=== PATIENT | male | born 1950 | race Caucasian/White ===

== ENCOUNTER 2020-04-30 12:26 | Inpatient (IN) ==
[2020-04-30] MEDS ORDERED: Naloxone 0.4 MG/ML INJ IVP PRN (17:55)
[2020-04-30] MEDS ORDERED: *HR* Promethazine 25 MG/ML VIAL IVP PRN (17:58)
[2020-04-30] MEDS ORDERED: *HR* LORazepam 2 MG/ML VIAL IVP PRN (17:58)
[2020-04-30] MEDS: *HR* LORazepam 2 MG/ML VIAL IVP PRN ×2 (19:21→20:33)
[2020-04-30] MEDS: Thiamine (B-1) 100 MG, Folic Acid 1 MG, MVI, adult with vitamin K 10 ML in 0.9 % Sodi... IVPB SCH (19:22)
[2020-04-30] MEDS: Nicotine 21 MG PATCH.TD24 TD SCH (20:39)
[2020-05-01] MEDS: *HR* LORazepam 2 MG/ML VIAL IVP PRN ×2 (01:39→02:21)
[2020-05-01] MEDS ORDERED: *HR* LORazepam 2 MG/ML VIAL IVP ONE (03:01)
[2020-05-01] MEDS: Dexmedetomidine HCl 400 MCG/100 ML MLS IVC SCH (04:31)
[2020-05-01 05:11] LABS: Hematocrit 28.9 % (37.5-50.1); Hemoglobin 9.7 g/dL (12.9-16.9); Mean Corpuscular HGB Conc 33.6 g/dL (31.6-35.5); Mean Corpuscular Hemoglobin 33.8 pg (28.0-33.3); Mean Corpuscular Volume 100.7 fL (83.0-100.0); Mean Platelet Volume 9.2 fL (9.4-12.4); Platelet Count 225 K/mcL (140-400); Red Blood Count 2.87 M/mcL (4.19-5.50); Red Cell Distribution Width 12.5 % (11.5-14.5); White Blood Count 4.4 K/mcL (4.3-11.1)
[2020-05-01 05:38] LABS: % Iron Saturation 20 % (20-55); Alanine Aminotransferase 14 Units/L (7-52); Albumin/Globulin Ratio 1.2 (1.1-2.2); Alkaline Phosphatase 53 Units/L (34-104); Aspartate Amino Transferase 22 Units/L (13-39); BUN/Creatinine Ratio 14 (6-26); Bilirubin,Total 0.6 mg/dL (0.3-1.0); Blood Urea Nitrogen 14 mg/dL (8-23); Calcium 8.1 mg/dL (8.6-10.3); Carbon Dioxide 22 mEq/L (23-29); Chloride 95 mEq/L (98-107); Globulin 2.6 g/dL (2.4-3.5); Glucose 83 mg/dL (70-105); Iron 39 mcg/dL (65-175); Magnesium 1.4 mg/dL (1.6-2.6); Osmolality,Calculated 268 (280-300); Potassium 3.2 mEq/L (3.5-5.1); Sodium 129 mEq/L (136-145); Total Protein 5.6 g/dL (6.4-8.9); Transferrin 142 mg/dL (203-362); eGFR For African Americans > 60 (> 60); eGFR For Non-African Americans > 60 (> 60)
[2020-05-01 05:56] LABS: Ferritin > 1500 ng/mL (20-250)
[2020-05-01] MEDS ORDERED: levoFLOXacin 750 MG/150 ML 750 MG/150 ML BAG IVPB SCH (09:00)
[2020-05-01] MEDS ORDERED: 0.9 % Sodium Chloride 500 ML ONE (12:48)
[2020-05-01] MEDS: Aspirin Enteric Coated 81 MG Tablet PO SCH (12:55)
[2020-05-01] MEDS: Thiamine (B-1) 100 MG, Folic Acid 1 MG, MVI, adult with vitamin K 10 ML in 0.9 % Sodi... IVPB SCH (19:16)
[2020-05-01] MEDS: Nicotine 21 MG PATCH.TD24 TD SCH (20:41)
[2020-05-01] MEDS: Famotidine 20 MG TABLET PO SCH (20:41)
[2020-05-02 05:59] LABS: Hematocrit 33.2 % (37.5-50.1); Hemoglobin 10.9 g/dL (12.9-16.9); Mean Corpuscular HGB Conc 32.8 g/dL (31.6-35.5); Mean Corpuscular Hemoglobin 33.2 pg (28.0-33.3); Mean Corpuscular Volume 101.2 fL (83.0-100.0); Mean Platelet Volume 10.5 fL (9.4-12.4); Platelet Count 235 K/mcL (140-400); Red Blood Count 3.28 M/mcL (4.19-5.50); Red Cell Distribution Width 12.7 % (11.5-14.5)
[2020-05-02 06:01] LABS: White Blood Count 8.2 K/mcL (4.3-11.1)
[2020-05-02 06:20] LABS: BUN/Creatinine Ratio 14 (6-26); Blood Urea Nitrogen 15 mg/dL (8-23); Calcium 8.9 mg/dL (8.6-10.3); Carbon Dioxide 20 mEq/L (23-29); Chloride 95 mEq/L (98-107); Glucose 72 mg/dL (70-105); Magnesium 2.1 mg/dL (1.6-2.6); Osmolality,Calculated 263 (280-300); Phosphorous 3.1 mg/dL (2.7-4.5); Potassium 4.1 mEq/L (3.5-5.1); Sodium 127 mEq/L (136-145); eGFR For African Americans > 60 (> 60); eGFR For Non-African Americans > 60 (> 60)
[2020-05-02] MEDS: Dexmedetomidine HCl 400 MCG/100 ML MLS IVC SCH (08:38)
[2020-05-02] MEDS: Famotidine 20 MG TABLET PO SCH ×2 (10:03→21:10)
[2020-05-02] MEDS: levoFLOXacin 750 MG TABLET PO SCH (10:03)
[2020-05-02] MEDS: Aspirin Enteric Coated 81 MG Tablet PO SCH (10:04)
[2020-05-02] MEDS: D5% in 0.9% NACL 1,000 ML IVC SCH ×2 (12:59→21:11)
[2020-05-02] MEDS: Thiamine (B-1) 100 MG, Folic Acid 1 MG, MVI, adult with vitamin K 10 ML in 0.9 % Sodi... IVPB SCH (18:04)
[2020-05-02] MEDS: Nicotine 21 MG PATCH.TD24 TD SCH (21:12)
[2020-05-03 02:12] LABS: Hematocrit 28.7 % (37.5-50.1); Hemoglobin 9.8 g/dL (12.9-16.9); Mean Corpuscular HGB Conc 34.1 g/dL (31.6-35.5); Mean Corpuscular Hemoglobin 34.3 pg (28.0-33.3); Mean Corpuscular Volume 100.3 fL (83.0-100.0); Mean Platelet Volume 9.3 fL (9.4-12.4); Platelet Count 238 K/mcL (140-400); Red Blood Count 2.86 M/mcL (4.19-5.50); Red Cell Distribution Width 12.7 % (11.5-14.5); White Blood Count 12.3 K/mcL (4.3-11.1)
[2020-05-03 02:31] LABS: BUN/Creatinine Ratio 13 (6-26); Blood Urea Nitrogen 13 mg/dL (8-23); Calcium 8.2 mg/dL (8.6-10.3); Carbon Dioxide 25 mEq/L (23-29); Chloride 99 mEq/L (98-107); Glucose 147 mg/dL (70-105); Magnesium 1.6 mg/dL (1.6-2.6); Osmolality,Calculated 273 (280-300); Phosphorous 2.5 mg/dL (2.7-4.5); Potassium 3.6 mEq/L (3.5-5.1); Sodium 130 mEq/L (136-145); eGFR For African Americans > 60 (> 60); eGFR For Non-African Americans > 60 (> 60)
[2020-05-03] MEDS: D5% in 0.9% NACL 1,000 ML IVC SCH ×2 (04:40→14:53)
[2020-05-03] MEDS ORDERED: Potassium Phosphate 44 MEQ in 0.9 % Sodium Chloride 250 ML IVPB ONE (07:40)
[2020-05-03] MEDS: levoFLOXacin 750 MG TABLET PO SCH (09:05)
[2020-05-03] MEDS: Famotidine 20 MG TABLET PO SCH ×2 (09:05→21:09)
[2020-05-03] MEDS: Aspirin Enteric Coated 81 MG Tablet PO SCH (09:05)
[2020-05-03] MEDS: Nicotine 21 MG PATCH.TD24 TD SCH (21:10)
[2020-05-04] MEDS: D5% in 0.9% NACL 1,000 ML IVC SCH (01:24)
[2020-05-04 02:13] LABS: Hematocrit 30.8 % (37.5-50.1); Hemoglobin 10.5 g/dL (12.9-16.9); Mean Corpuscular HGB Conc 34.1 g/dL (31.6-35.5); Mean Corpuscular Hemoglobin 34.5 pg (28.0-33.3); Mean Corpuscular Volume 101.3 fL (83.0-100.0); Mean Platelet Volume 9.5 fL (9.4-12.4); Platelet Count 231 K/mcL (140-400); Red Blood Count 3.04 M/mcL (4.19-5.50); Red Cell Distribution Width 12.7 % (11.5-14.5); White Blood Count 13.5 K/mcL (4.3-11.1)
[2020-05-04 02:32] LABS: Alanine Aminotransferase 13 Units/L (7-52); Albumin 3.1 g/dL (3.5-5.7); Albumin/Globulin Ratio 1.1 (1.1-2.2); Alkaline Phosphatase 82 Units/L (34-104); Aspartate Amino Transferase 17 Units/L (13-39); BUN/Creatinine Ratio 12 (6-26); Bilirubin,Direct 0.2 mg/dL (0.0-0.2); Bilirubin,Indirect 0.3 mg/dL (0.0-1.0); Bilirubin,Total 0.5 mg/dL (0.3-1.0); Blood Urea Nitrogen 10 mg/dL (8-23); Calcium 8.8 mg/dL (8.6-10.3); Carbon Dioxide 24 mEq/L (23-29); Chloride 104 mEq/L (98-107); Globulin 2.9 g/dL (2.4-3.5); Glucose 110 mg/dL (70-105); Magnesium 1.7 mg/dL (1.6-2.6); Osmolality,Calculated 278 (280-300); Phosphorous 3.4 mg/dL (2.7-4.5); Potassium 3.8 mEq/L (3.5-5.1); Sodium 134 mEq/L (136-145); eGFR For African Americans > 60 (> 60); eGFR For Non-African Americans > 60 (> 60)
[2020-05-04] MEDS: Famotidine 20 MG TABLET PO SCH ×2 (07:32→22:48)
[2020-05-04] MEDS: Aspirin Enteric Coated 81 MG Tablet PO SCH (07:32)
[2020-05-04] MEDS: levoFLOXacin 750 MG TABLET PO SCH (07:32)
[2020-05-04] MEDS ORDERED: E-Z-PAQUE (BARIUM SULF) SUSP 1 BOTTLE PO ONE (09:19)
[2020-05-04] MEDS ORDERED: E-Z-HD (BARIUM SULF) SUSPENSION PO ONE (09:19)
[2020-05-04] MEDS: lisinopriL 20 MG TABLET PO SCH (17:15)
[2020-05-04] MEDS: Thiamine (B-1) 100 MG TABLET PO SCH (18:29)
[2020-05-04] MEDS: Nicotine 21 MG PATCH.TD24 TD SCH (22:48)
[2020-05-05] MEDS: Thiamine (B-1) 100 MG TABLET PO SCH (10:12)
[2020-05-05] MEDS: lisinopriL 20 MG TABLET PO SCH (10:13)
[2020-05-05] MEDS: Aspirin Enteric Coated 81 MG Tablet PO SCH (10:13)
[2020-05-05] MEDS: Famotidine 20 MG TABLET PO SCH ×2 (10:13→21:06)
[2020-05-05] MEDS ORDERED: Gadolinium Contrast Agent (WT Based) IV PRN (13:54)
[2020-05-05 15:26] LABS: Basophils % 0.5 %; Eosinophils % 0.3 %; Hematocrit 31.6 % (37.5-50.1); Hemoglobin 10.3 g/dL (12.9-16.9); Immature Granulocytes % 0.7 % (0-4); Lymphocytes # 0.4 K/mcL (0.6-4.6); Lymphocytes % 7.1 %; Mean Corpuscular HGB Conc 32.6 g/dL (31.6-35.5); Mean Corpuscular Volume 101.3 fL (83.0-100.0); Mean Platelet Volume 9.2 fL (9.4-12.4); Monocytes # 0.5 K/mcL (0.0-1.3); Monocytes % 7.6 %; Platelet Count 253 K/mcL (140-400); Red Blood Count 3.12 M/mcL (4.19-5.50); Red Cell Distribution Width 12.8 % (11.5-14.5); Segmented Neutrophils % 83.8 %
[2020-05-05 15:33] LABS: Neutrophils # 4.9 K/mcL (1.6-8.9); White Blood Count 5.9 K/mcL (4.3-11.1)
[2020-05-05 15:34] LABS: VBG HCO3 24 mEq/L (21-27); VBG PCO2 35 mmHg (41-51); VBG PH 7.44 pH Units (7.32-7.42); VBG PO2 61 mmHg (25-50)
[2020-05-05 15:40] LABS: BUN/Creatinine Ratio 13 (6-26); Blood Urea Nitrogen 10 mg/dL (8-23); C-Reactive Protein 139 mg/L (Less than 10); Calcium 9.5 mg/dL (8.6-10.3); Carbon Dioxide 26 mEq/L (23-29); Chloride 102 mEq/L (98-107); Glucose 72 mg/dL (70-105); Osmolality,Calculated 276 (280-300); Sodium 134 mEq/L (136-145); eGFR For African Americans > 60 (> 60); eGFR For Non-African Americans > 60 (> 60)
[2020-05-05 16:52] LABS: Bilirubin,Urine Negative (Negative); Blood,Urine Negative (Negative); Clarity,Urine Clear (Clear); Color,Urine Light-Yellow (Yellow); Glucose,Urine (UA) Normal (Normal); Ketones,Urine Negative (Negative); Leukocyte Esterase,Urine Negative (Negative); Nitrite,Urine Negative (Negative); PH,Urine 5.5 pH Units (5.0-8.0); Protein,Urine Negative (Neg-Trace); Specific Gravity,Urine 1.015 (1.010-1.025); Urobilinogen,Urine Normal (Normal)
[2020-05-05 17:04] LABS: Procalcitonin 0.09 ng/mL (0.00-0.15)
[2020-05-05] MEDS: Nicotine 21 MG PATCH.TD24 TD SCH (21:06)
[2020-05-05] MEDS: D5% in 0.9% NACL 1,000 ML IVC SCH (21:53)
[2020-05-06] MEDS ORDERED: Haloperidol Lactate 5 MG/ML VIAL IVP ONE (02:02)
[2020-05-06 02:25] LABS: ABG Base Excess 1 mEq/L (-2 to 3); ABG HCO3 25 mEq/L (21-27); ABG Oxygen Saturation 92 % (95-98); ABG PCO2 39 mmHg (35-45); ABG PH 7.42 pH Units (7.32-7.45); ABG PO2 62 mmHg (85-104); ABG TCO2 26 mEq/L (20-26)
[2020-05-06] MEDS: Piperacillin/Tazobactam 3.375 GM in 0.9 % Sodium Chloride Mini Bag 100 ML IVPB SCH ×3 (04:03→19:51)
[2020-05-06 04:22] LABS: Basophils % 0.4 %; Eosinophils % 0.6 %; Hematocrit 31.2 % (37.5-50.1); Hemoglobin 10.3 g/dL (12.9-16.9); Immature Granulocytes % 0.8 % (0-4); Lymphocytes # 0.4 K/mcL (0.6-4.6); Lymphocytes % 7.4 %; Mean Platelet Volume 9.5 fL (9.4-12.4); Monocytes # 0.4 K/mcL (0.0-1.3); Monocytes % 7.8 %; Platelet Count 272 K/mcL (140-400); Red Blood Count 3.12 M/mcL (4.19-5.50); Red Cell Distribution Width 12.8 % (11.5-14.5); White Blood Count 4.8 K/mcL (4.3-11.1)
[2020-05-06 04:34] LABS: BUN/Creatinine Ratio 15 (6-26); Blood Urea Nitrogen 12 mg/dL (8-23); Calcium 9.2 mg/dL (8.6-10.3); Carbon Dioxide 23 mEq/L (23-29); Chloride 101 mEq/L (98-107); Glucose 73 mg/dL (70-105); Osmolality,Calculated 276 (280-300); Potassium 3.9 mEq/L (3.5-5.1); Sodium 134 mEq/L (136-145); eGFR For African Americans > 60 (> 60); eGFR For Non-African Americans > 60 (> 60)
[2020-05-06] MEDS ORDERED: Thiamine (B-1) 100 MG in 0.9 % Sodium Chloride 50 ML IVPB STA (10:04)
[2020-05-06] MEDS ORDERED: *HR* Metoprolol 5 MG/5 ML VIAL IVP PRN (10:14)
[2020-05-06] MEDS: Thiamine (B-1) 100 MG TABLET PO SCH (10:20)
[2020-05-06] MEDS: Famotidine 20 MG TABLET PO SCH ×2 (10:20→19:43)
[2020-05-06] MEDS: Aspirin Enteric Coated 81 MG Tablet PO SCH (10:20)
[2020-05-06] MEDS: lisinopriL 20 MG TABLET PO SCH (10:21)
[2020-05-06] MEDS: *HR* Metoprolol 5 MG/5 ML VIAL IVP SCH ×2 (11:56→17:45)
[2020-05-06 12:06] LABS: Adenovirus Not Detected (Not Detect); Bordetella Pertussis Not Detected (Not Detect); Chlamydophila pneumoniae Not Detected (Not Detect); Coronavirus 229E Not Detected (Not Detect); Coronavirus HKU1 Not Detected (Not Detect); Coronavirus NL63 Not Detected (Not Detect); Coronavirus OC43 Not Detected (Not Detect); Human Metapneumovirus Not Detected (Not Detect); Human Rhinovirus/Enterovirus Not Detected (Not Detect); Influenza A Subtype 2009 H1 Not Detected (Not Detect); Influenza B Not Detected (Not Detect); Mycoplasma pneumoniae Not Detected (Not Detect); Parainfluenza Virus 1 Not Detected (Not Detect); Parainfluenza Virus 2 Not Detected (Not Detect); Parainfluenza Virus 3 Not Detected (Not Detect); Parainfluenza Virus 4 Not Detected (Not Detect); Respiratory Syncytial Virus Not Detected (Not Detect); SARS-CoV-2 Not Detected (Not Detect)
[2020-05-06] MEDS ORDERED: D5% in Water 1,000 ML IVC PRN (12:12)
[2020-05-06] MEDS ORDERED: Dextrose Gel 15 GM/37.5 ML TUBE PO PRN ×2 (12:12)
[2020-05-06] MEDS ORDERED: D5% in Lactated Ringers 1,000 ML IVC ONE (12:14)
[2020-05-06 15:44] LABS: ABG Base Excess 1 mEq/L (-2 to 3); ABG HCO3 26 mEq/L (21-27); ABG Oxygen Saturation 95 % (95-98); ABG PCO2 44 mmHg (35-45); ABG PH 7.38 pH Units (7.32-7.45); ABG PO2 77 mmHg (85-104); ABG TCO2 28 mEq/L (20-26)
[2020-05-06] MEDS: Nicotine 21 MG PATCH.TD24 TD SCH (19:52)
[2020-05-07] MEDS: *HR* Metoprolol 5 MG/5 ML VIAL IVP SCH ×5 (00:08→23:59)
[2020-05-07] MEDS: Piperacillin/Tazobactam 3.375 GM in 0.9 % Sodium Chloride Mini Bag 100 ML IVPB SCH ×3 (04:10→20:14)
[2020-05-07] MEDS: *HR* Dextrose 50 % in Water (Vial) 50 ML VIAL IVP PRN (06:26)
[2020-05-07] MEDS: Famotidine 20 MG TABLET PO SCH ×2 (08:21→21:50)
[2020-05-07] MEDS: Aspirin Enteric Coated 81 MG Tablet PO SCH (08:21)
[2020-05-07] MEDS: lisinopriL 20 MG TABLET PO SCH (08:21)
[2020-05-07] MEDS: Thiamine (B-1) 100 MG TABLET PO SCH (08:21)
[2020-05-07 09:34] LABS: ABG Base Excess 4 mEq/L (-2 to 3); ABG HCO3 28 mEq/L (21-27); ABG Oxygen Saturation 93 % (95-98); ABG PCO2 42 mmHg (35-45); ABG PH 7.44 pH Units (7.32-7.45); ABG PO2 64 mmHg (85-104); ABG TCO2 30 mEq/L (20-26)
[2020-05-07 10:32] LABS: Basophils % 0.3 %; Eosinophils % 0.1 %; Hematocrit 31.1 % (37.5-50.1); Hemoglobin 10.3 g/dL (12.9-16.9); Immature Granulocytes % 0.4 % (0-4); Lymphocytes # 0.3 K/mcL (0.6-4.6); Lymphocytes % 2.1 %; Mean Corpuscular HGB Conc 33.1 g/dL (31.6-35.5); Mean Corpuscular Hemoglobin 33.3 pg (28.0-33.3); Mean Corpuscular Volume 100.6 fL (83.0-100.0); Mean Platelet Volume 9.3 fL (9.4-12.4); Monocytes # 0.9 K/mcL (0.0-1.3); Monocytes % 6.5 %; Neutrophils # 12.2 K/mcL (1.6-8.9); Platelet Count 261 K/mcL (140-400); Red Blood Count 3.09 M/mcL (4.19-5.50); Red Cell Distribution Width 12.9 % (11.5-14.5); Segmented Neutrophils % 90.6 %
[2020-05-07 10:33] LABS: White Blood Count 13.5 K/mcL (4.3-11.1)
[2020-05-07 11:00] LABS: BUN/Creatinine Ratio 11 (6-26); Blood Urea Nitrogen 10 mg/dL (8-23); Calcium 8.7 mg/dL (8.6-10.3); Carbon Dioxide 26 mEq/L (23-29); Chloride 101 mEq/L (98-107); Glucose 88 mg/dL (70-105); Magnesium 1.1 mg/dL (1.6-2.6); Osmolality,Calculated 278 (280-300); Phosphorous 3.6 mg/dL (2.7-4.5); Potassium 3.6 mEq/L (3.5-5.1); Sodium 135 mEq/L (136-145); eGFR For African Americans > 60 (> 60); eGFR For Non-African Americans > 60 (> 60)
[2020-05-07 12:43] LABS: INR 1.1
[2020-05-07] MEDS ORDERED: Ondansetron 4 MG/2 ML VIAL ONE (15:09)
[2020-05-07] MEDS ORDERED: Lidocaine -MPF 4% 5 ML AMPUL ONE (15:09)
[2020-05-07] MEDS ORDERED: Lidocaine -MPF 2% 2 ML VIAL ONE (15:09)
[2020-05-07] MEDS ORDERED: *HR* FentaNYL (PF) 100 MCG/2 ML VIAL ONE (15:09)
[2020-05-07] MEDS ORDERED: Dexamethasone 4 MG/ML VIAL ONE (15:09)
[2020-05-07] MEDS ORDERED: *HR* Propofol 200 MG/20 ML VIAL IVP ONE (15:09)
[2020-05-07] MEDS: Ringers Solution, Lactated 1,000 ML IVC SCH (15:55)
[2020-05-07] MEDS ORDERED: Artificial Tears SOLN 15 ML BOTTLE BOTH EYES PRN (16:59)
[2020-05-07] MEDS: FentaNYL (PF) 1,000 MCG/100 ML IV.SOLN IVC SCH (17:26)
[2020-05-07 17:38] LABS: ABG Base Excess 4 mEq/L (-2 to 3); ABG HCO3 29 mEq/L (21-27); ABG Oxygen Saturation 95 % (95-98); ABG PCO2 48 mmHg (35-45); ABG PH 7.39 pH Units (7.32-7.45); ABG PO2 79 mmHg (85-104); ABG TCO2 31 mEq/L (20-26); Blood Gas Modality ASSIST CONTROL; Blood Gas VT 500 cc
[2020-05-07 17:54] LABS: Appearance of Body Fluid Hazy (Clear); Appearance of Body Fluid Slightly Hazy (Clear); Volume of Body Fluid 23 mL; Volume of Body Fluid 25 mL
[2020-05-07] MEDS: Azithromycin 500 MG in 0.9 % Sodium Chloride 250 ML IVPB SCH (18:59)
[2020-05-07] MEDS: Chlorhexidine Rinse 15 ML MOUTHWASH MM SCH (20:15)
[2020-05-07] MEDS: Artificial Tears SOLN 15 ML BOTTLE BOTH EYES SCH ×2 (20:32→23:59)
[2020-05-07] MEDS: Nicotine 21 MG PATCH.TD24 TD SCH (21:25)
[2020-05-07] MEDS: Famotidine 20 MG/2 ML VIAL IVP SCH (21:36)
[2020-05-07] MEDS: *HR* Heparin 5,000 UNIT/ML VIAL SQ SCH (22:02)
[2020-05-08] MEDS: Piperacillin/Tazobactam 3.375 GM in 0.9 % Sodium Chloride Mini Bag 100 ML IVPB SCH ×3 (03:33→20:16)
[2020-05-08] MEDS: Artificial Tears SOLN 15 ML BOTTLE BOTH EYES SCH ×5 (04:14→20:19)
[2020-05-08 04:27] LABS: ABG Base Excess 2 mEq/L (-2 to 3); ABG HCO3 28 mEq/L (21-27); ABG Oxygen Saturation 99 % (95-98); ABG PCO2 48 mmHg (35-45); ABG PH 7.38 pH Units (7.32-7.45); ABG PO2 118 mmHg (85-104); ABG TCO2 30 mEq/L (20-26); Blood Gas Modality ASSIST CONTROL; Blood Gas VT 500 cc
[2020-05-08 05:07] LABS: BUN/Creatinine Ratio 14 (6-26); Blood Urea Nitrogen 16 mg/dL (8-23); Calcium 8.1 mg/dL (8.6-10.3); Carbon Dioxide 19 mEq/L (23-29); Glucose 76 mg/dL (70-105); eGFR For African Americans > 60 (> 60); eGFR For Non-African Americans > 60 (> 60)
[2020-05-08 05:08] LABS: Chloride 102 mEq/L (98-107); Osmolality,Calculated 280 (280-300); Potassium 4.1 mEq/L (3.5-5.1); Sodium 135 mEq/L (136-145)
[2020-05-08] MEDS: *HR* Heparin 5,000 UNIT/ML VIAL SQ SCH ×3 (05:29→20:18)
[2020-05-08] MEDS: *HR* Metoprolol 5 MG/5 ML VIAL IVP SCH ×3 (06:17→17:05)
[2020-05-08] MEDS: Aspirin Enteric Coated 81 MG Tablet PO SCH (07:42)
[2020-05-08] MEDS: lisinopriL 20 MG TABLET PO SCH (07:43)
[2020-05-08] MEDS: Chlorhexidine Rinse 15 ML MOUTHWASH MM SCH ×2 (09:28→20:17)
[2020-05-08] MEDS: Pantoprazole 40 MG VIAL IVP SCH (09:28)
[2020-05-08] MEDS: Famotidine 20 MG/2 ML VIAL IVP SCH ×2 (09:29→20:17)
[2020-05-08] MEDS: Thiamine (B-1) 100 MG TABLET PO SCH (09:29)
[2020-05-08 10:10] LABS: Basophils # 0.1 K/mcL (0.0-0.2); Basophils % 0.3 %; Eosinophils % 0.1 %; Hematocrit 31.6 % (37.5-50.1); Hemoglobin 10.4 g/dL (12.9-16.9); Immature Granulocytes % 0.4 % (0-4); Lymphocytes # 0.5 K/mcL (0.6-4.6); Lymphocytes % 3.1 %; Mean Corpuscular HGB Conc 32.9 g/dL (31.6-35.5); Mean Corpuscular Hemoglobin 33.5 pg (28.0-33.3); Mean Platelet Volume 9.6 fL (9.4-12.4); Monocytes % 5.7 %; Neutrophils # 15.3 K/mcL (1.6-8.9); Platelet Count 212 K/mcL (140-400); Red Cell Distribution Width 13.2 % (11.5-14.5); Segmented Neutrophils % 90.4 %; White Blood Count 16.9 K/mcL (4.3-11.1)
[2020-05-08 10:41] LABS: Mean Corpuscular Volume 101.9 fL (83.0-100.0)
[2020-05-08 12:28] LABS: Magnesium 1.3 mg/dL (1.6-2.6); Phosphorous 5.2 mg/dL (2.7-4.5)
[2020-05-08] MEDS: Azithromycin 500 MG in 0.9 % Sodium Chloride 250 ML IVPB SCH (15:37)
[2020-05-08] MEDS: Multivit/Ca/Min/Fe/FA 1 TAB TABLET PO SCH (15:38)
[2020-05-08] MEDS: Aspirin 81 MG TAB.CHEW PO SCH (15:38)
[2020-05-08] MEDS: Folic Acid 1 MG TABLET PO SCH (15:38)
[2020-05-08 17:16] LABS: Uric Acid 2.6 mg/dL (2.3-7.6)
[2020-05-08] MEDS: Nicotine 21 MG PATCH.TD24 TD SCH (20:17)
[2020-05-09] MEDS ORDERED: 0.9 % Sodium Chloride 1,000 ML IVC SCH (00:30)
[2020-05-09] MEDS: *HR* Metoprolol 5 MG/5 ML VIAL IVP SCH ×4 (01:05→18:20)
[2020-05-09] MEDS: Ringers Solution, Lactated 1,000 ML IVC SCH (01:06)
[2020-05-09] MEDS: Artificial Tears SOLN 15 ML BOTTLE BOTH EYES SCH ×7 (01:06→23:55)
[2020-05-09] MEDS: FentaNYL (PF) 1,000 MCG/100 ML IV.SOLN IVC SCH ×2 (01:33→18:21)
[2020-05-09 05:05] LABS: ABG Base Excess -1 mEq/L (-2 to 3); ABG HCO3 23 mEq/L (21-27); ABG Oxygen Saturation 95 % (95-98); ABG PCO2 36 mmHg (35-45); ABG PH 7.41 pH Units (7.32-7.45); ABG PO2 76 mmHg (85-104); ABG TCO2 24 mEq/L (20-26); Blood Gas Modality ASSIST CONTROL; Blood Gas VT 500 cc
[2020-05-09 05:29] LABS: Basophils % 0.3 %; Eosinophils % 0.1 %; Hematocrit 28.1 % (37.5-50.1); Hemoglobin 9.2 g/dL (12.9-16.9); Immature Granulocytes % 0.6 % (0-4); Lymphocytes # 0.3 K/mcL (0.6-4.6); Lymphocytes % 2.9 %; Mean Corpuscular HGB Conc 32.7 g/dL (31.6-35.5); Mean Corpuscular Hemoglobin 33.2 pg (28.0-33.3); Mean Corpuscular Volume 101.4 fL (83.0-100.0); Mean Platelet Volume 9.8 fL (9.4-12.4); Monocytes # 0.6 K/mcL (0.0-1.3); Monocytes % 4.8 %; Neutrophils # 10.6 K/mcL (1.6-8.9); Platelet Count 256 K/mcL (140-400); Red Blood Count 2.77 M/mcL (4.19-5.50); Red Cell Distribution Width 13.1 % (11.5-14.5); Segmented Neutrophils % 91.3 %; White Blood Count 11.6 K/mcL (4.3-11.1)
[2020-05-09] MEDS: Piperacillin/Tazobactam 3.375 GM in 0.9 % Sodium Chloride Mini Bag 100 ML IVPB SCH ×3 (05:37→19:54)
[2020-05-09] MEDS: *HR* Heparin 5,000 UNIT/ML VIAL SQ SCH ×3 (05:38→23:29)
[2020-05-09 05:46] LABS: Calcium 8.1 mg/dL (8.6-10.3); Magnesium 1.8 mg/dL (1.6-2.6); Phosphorous 4.8 mg/dL (2.7-4.5); Potassium 3.9 mEq/L (3.5-5.1)
[2020-05-09] MEDS: Chlorhexidine Rinse 15 ML MOUTHWASH MM SCH ×2 (07:57→19:55)
[2020-05-09] MEDS: Pantoprazole 40 MG VIAL IVP SCH (07:57)
[2020-05-09] MEDS: Folic Acid 1 MG TABLET PO SCH (07:58)
[2020-05-09] MEDS: Multivit/Ca/Min/Fe/FA 1 TAB TABLET PO SCH (07:58)
[2020-05-09] MEDS: Aspirin 81 MG TAB.CHEW PO SCH (07:58)
[2020-05-09] MEDS: Thiamine (B-1) 100 MG TABLET PO SCH (07:58)
[2020-05-09] MEDS: lisinopriL 20 MG TABLET PO SCH (07:59)
[2020-05-09] MEDS: Famotidine 20 MG/2 ML VIAL IVP SCH ×2 (07:59→20:02)
[2020-05-09] MEDS ORDERED: Ringers Solution, Lactated 1,000 ML IVC ONE (10:52)
[2020-05-09] MEDS: Albumin Human 5% 12.5 GM/250 ML IV.SOLN IVC SCH ×2 (11:25→14:52)
[2020-05-09] MEDS: Azithromycin 500 MG in 0.9 % Sodium Chloride 250 ML IVPB SCH (16:38)
[2020-05-09] MEDS: Nicotine 21 MG PATCH.TD24 TD SCH (19:55)
[2020-05-10] MEDS: *HR* Metoprolol 5 MG/5 ML VIAL IVP SCH ×3 (00:41→12:35)
[2020-05-10 01:07] LABS: Bacteria,Urine Few per hpf (None-Few); Bilirubin,Urine Negative (Negative); Blood,Urine Small (Negative); Clarity,Urine Clear (Clear); Color,Urine Light-Yellow (Yellow); Glucose,Urine (UA) Normal (Normal); Hyaline Casts,Urine Few per lpf (None Seen); Ketones,Urine Trace mg/dL (Negative); Leukocyte Esterase,Urine Negative (Negative); Mucus,Urine Few per lpf (None-Few); Nitrite,Urine Negative (Negative); Protein,Urine 30 mg/dL (Neg-Trace); Specific Gravity,Urine 1.019 (1.010-1.025); Urobilinogen,Urine Normal (Normal)
[2020-05-10 02:32] LABS: Sodium, Urine 107.2 mEq/L
[2020-05-10] MEDS: Piperacillin/Tazobactam 3.375 GM in 0.9 % Sodium Chloride Mini Bag 100 ML IVPB SCH ×3 (04:19→19:45)
[2020-05-10] MEDS: Artificial Tears SOLN 15 ML BOTTLE BOTH EYES SCH ×6 (04:19→23:46)
[2020-05-10 04:49] LABS: ABG Base Excess 1 mEq/L (-2 to 3); ABG HCO3 25 mEq/L (21-27); ABG Oxygen Saturation 100 % (95-98); ABG PCO2 39 mmHg (35-45); ABG PH 7.42 pH Units (7.32-7.45); ABG PO2 165 mmHg (85-104); ABG TCO2 27 mEq/L (20-26); Blood Gas Modality ASSIST CONTROL; Blood Gas VT 500 cc
[2020-05-10 05:17] LABS: Basophils # 0.1 K/mcL (0.0-0.2); Basophils % 0.7 %; Eosinophils % 0.5 %; Hematocrit 27.5 % (37.5-50.1); Immature Granulocytes % 0.8 % (0-4); Lymphocytes # 0.5 K/mcL (0.6-4.6); Mean Corpuscular HGB Conc 32.7 g/dL (31.6-35.5); Mean Corpuscular Hemoglobin 32.7 pg (28.0-33.3); Mean Platelet Volume 9.6 fL (9.4-12.4); Monocytes # 0.5 K/mcL (0.0-1.3); Neutrophils # 6.5 K/mcL (1.6-8.9); Platelet Count 264 K/mcL (140-400); Red Blood Count 2.75 M/mcL (4.19-5.50); Red Cell Distribution Width 13.2 % (11.5-14.5); White Blood Count 7.6 K/mcL (4.3-11.1)
[2020-05-10 05:30] LABS: Calcium 8.6 mg/dL (8.6-10.3); Magnesium 1.9 mg/dL (1.6-2.6); Phosphorous 3.6 mg/dL (2.7-4.5); Potassium 3.6 mEq/L (3.5-5.1)
[2020-05-10] MEDS: *HR* Heparin 5,000 UNIT/ML VIAL SQ SCH ×3 (05:32→22:10)
[2020-05-10] MEDS: Multivit/Ca/Min/Fe/FA 1 TAB TABLET PO SCH (07:50)
[2020-05-10] MEDS: Aspirin 81 MG TAB.CHEW PO SCH (07:50)
[2020-05-10] MEDS: Chlorhexidine Rinse 15 ML MOUTHWASH MM SCH ×2 (07:50→19:45)
[2020-05-10] MEDS: Folic Acid 1 MG TABLET PO SCH (07:50)
[2020-05-10] MEDS: Pantoprazole 40 MG VIAL IVP SCH (07:51)
[2020-05-10] MEDS: Famotidine 20 MG/2 ML VIAL IVP SCH (07:51)
[2020-05-10] MEDS: Thiamine (B-1) 100 MG TABLET PO SCH (07:51)
[2020-05-10] MEDS: lisinopriL 20 MG TABLET PO SCH (07:51)
[2020-05-10] MEDS: *HR* Dextrose 50 % in Water (Vial) 50 ML VIAL IVP PRN ×2 (07:52→12:37)
[2020-05-10] MEDS: MethylPREDNISolone 40 MG/ML VIAL IVP SCH ×2 (12:36→18:58)
[2020-05-10] MEDS ORDERED: *HR* Midazolam HCl 2 MG/2 ML VIAL IVP ONE (14:13)
[2020-05-10] MEDS ORDERED: Lidocaine -MPF 1% 2 ML VIAL INFILT ONE (14:30)
[2020-05-10] MEDS ORDERED: *HR* OxyCODONE Oral Soln 5 MG/5 ML UD.LIQ GTUBE PRN (15:07)
[2020-05-10] MEDS: Azithromycin 500 MG in 0.9 % Sodium Chloride 250 ML IVPB SCH (16:00)
[2020-05-10] MEDS ORDERED: *HR* LORazepam 2 MG/ML VIAL IVP PRN (18:50)
[2020-05-10] MEDS: FentaNYL (PF) 1,000 MCG/100 ML IV.SOLN IVC SCH (19:42)
[2020-05-10] MEDS: Nicotine 21 MG PATCH.TD24 TD SCH (19:45)
[2020-05-10] MEDS ORDERED: *HR* FentaNYL (PF) 100 MCG/2 ML VIAL IVP PRN (19:57)
[2020-05-11] MEDS: Piperacillin/Tazobactam 3.375 GM in 0.9 % Sodium Chloride Mini Bag 100 ML IVPB SCH ×3 (03:29→20:21)
[2020-05-11] MEDS: Artificial Tears SOLN 15 ML BOTTLE BOTH EYES SCH ×3 (03:30→13:24)
[2020-05-11 03:56] LABS: Influenza A PCR Body Fluid NOT DETECTED; Influenza B PCR Body Fluid NOT DETECTED; RVP Body Fluid Source BAL
[2020-05-11 04:50] LABS: ABG Base Excess 2 mEq/L (-2 to 3); ABG HCO3 27 mEq/L (21-27); ABG Oxygen Saturation 98 % (95-98); ABG PCO2 40 mmHg (35-45); ABG PH 7.43 pH Units (7.32-7.45); ABG PO2 94 mmHg (85-104); ABG TCO2 28 mEq/L (20-26); Blood Gas Modality ASSIST CONTROL; Blood Gas VT 470 cc
[2020-05-11] MEDS: MethylPREDNISolone 40 MG/ML VIAL IVP SCH ×2 (05:33→16:15)
[2020-05-11] MEDS: *HR* Heparin 5,000 UNIT/ML VIAL SQ SCH ×3 (05:33→22:26)
[2020-05-11 07:01] LABS: Basophils % 0.4 %; Hematocrit 29.4 % (37.5-50.1); Lymphocytes # 0.3 K/mcL (0.6-4.6); Lymphocytes % 3.8 %; Mean Corpuscular Volume 102.8 fL (83.0-100.0); Monocytes # 0.5 K/mcL (0.0-1.3); Monocytes % 6.5 %; Neutrophils # 6.4 K/mcL (1.6-8.9); Platelet Count 289 K/mcL (140-400); Red Blood Count 2.86 M/mcL (4.19-5.50); Segmented Neutrophils % 88.3 %; White Blood Count 7.2 K/mcL (4.3-11.1)
[2020-05-11 07:10] LABS: Calcium 9.2 mg/dL (8.6-10.3); Phosphorous 3.4 mg/dL (2.7-4.5); Potassium 3.7 mEq/L (3.5-5.1)
[2020-05-11] MEDS: Folic Acid 1 MG TABLET PO SCH (07:50)
[2020-05-11] MEDS: lisinopriL 20 MG TABLET PO SCH (07:50)
[2020-05-11] MEDS: Multivit/Ca/Min/Fe/FA 1 TAB TABLET PO SCH (07:50)
[2020-05-11] MEDS: Famotidine 20 MG/2 ML VIAL IVP SCH (07:50)
[2020-05-11] MEDS: Thiamine (B-1) 100 MG TABLET PO SCH (07:50)
[2020-05-11] MEDS: Chlorhexidine Rinse 15 ML MOUTHWASH MM SCH (07:50)
[2020-05-11] MEDS: Aspirin 81 MG TAB.CHEW PO SCH (07:50)
[2020-05-11 12:43] LABS: RSV PCR Body Fluid NOT DETECTED
[2020-05-11] MEDS: Azithromycin 500 MG in 0.9 % Sodium Chloride 250 ML IVPB SCH (16:15)
[2020-05-11] MEDS: Nicotine 21 MG PATCH.TD24 TD SCH (20:21)
[2020-05-12 01:35] LABS: Basophils % 0.5 %; Eosinophils % 0.1 %; Hematocrit 29.4 % (37.5-50.1); Hemoglobin 9.7 g/dL (12.9-16.9); Immature Granulocytes % 1.1 % (0-4); Lymphocytes # 0.4 K/mcL (0.6-4.6); Lymphocytes % 4.8 %; Mean Corpuscular Hemoglobin 33.4 pg (28.0-33.3); Mean Corpuscular Volume 101.4 fL (83.0-100.0); Mean Platelet Volume 10.1 fL (9.4-12.4); Monocytes # 0.6 K/mcL (0.0-1.3); Monocytes % 7.2 %; Neutrophils # 7.5 K/mcL (1.6-8.9); Platelet Count 286 K/mcL (140-400); Red Cell Distribution Width 13.1 % (11.5-14.5); Segmented Neutrophils % 86.3 %; White Blood Count 8.7 K/mcL (4.3-11.1)
[2020-05-12 01:55] LABS: Calcium 9.3 mg/dL (8.6-10.3); Magnesium 1.9 mg/dL (1.6-2.6); Phosphorous 2.5 mg/dL (2.7-4.5); Potassium 3.4 mEq/L (3.5-5.1)
[2020-05-12] MEDS: MethylPREDNISolone 40 MG/ML VIAL IVP SCH ×2 (06:36→17:14)
[2020-05-12] MEDS: *HR* Heparin 5,000 UNIT/ML VIAL SQ SCH (06:37)
[2020-05-12] MEDS: Piperacillin/Tazobactam 3.375 GM in 0.9 % Sodium Chloride Mini Bag 100 ML IVPB SCH (06:37)
[2020-05-12] MEDS ORDERED: Furosemide 40 MG/4 ML VIAL IVP ONE (07:53)
[2020-05-12] MEDS ORDERED: Ipratropium/Albuterol Neb 3 ML IH SCH (08:00)
[2020-05-12] MEDS ORDERED: Ipratropium/Albuterol Neb 3 ML ONE (08:05)
[2020-05-12] MEDS: Aspirin 81 MG TAB.CHEW PO SCH (08:48)
[2020-05-12] MEDS: lisinopriL 20 MG TABLET PO SCH (08:48)
[2020-05-12] MEDS: Multivit/Ca/Min/Fe/FA 1 TAB TABLET PO SCH (08:48)
[2020-05-12] MEDS: Folic Acid 1 MG TABLET PO SCH (08:48)
[2020-05-12] MEDS: Thiamine (B-1) 100 MG TABLET PO SCH (08:48)
[2020-05-12] MEDS: Famotidine 20 MG/2 ML VIAL IVP SCH (08:49)
[2020-05-12] MEDS ORDERED: Haloperidol Lactate 5 MG/ML VIAL IVP PRN (10:25)
[2020-05-12] MEDS: Atropine Sulfate 1% 40 DROP/2 ML BOTTLE SL PRN ×5 (11:41→22:17)
[2020-05-12 12:01] LABS: Mycoplasma pneumoniae IgG 0.04 U/L (<=0.09)
[2020-05-12] MEDS: *HR* LORazepam 2 MG/ML VIAL IVP PRN ×4 (14:47→22:17)
[2020-05-12] MEDS: *HR* FentaNYL (PF) 100 MCG/2 ML VIAL IVP PRN ×8 (14:48→23:24)
[2020-05-12] MEDS: Nicotine 21 MG PATCH.TD24 TD SCH (19:47)
[2020-05-13 01:51] LABS: Influenza A PCR Body Fluid NOT DETECTED; Influenza B PCR Body Fluid NOT DETECTED; RVP Body Fluid Source BAL
[2020-05-13] MEDS: *HR* FentaNYL (PF) 100 MCG/2 ML VIAL IVP PRN ×5 (02:10→18:33)
[2020-05-13] MEDS: *HR* LORazepam 2 MG/ML VIAL IVP PRN ×2 (02:10→05:08)
[2020-05-13] MEDS: MethylPREDNISolone 40 MG/ML VIAL IVP SCH ×2 (05:08→18:32)
[2020-05-13 12:45] LABS: RSV PCR Body Fluid NOT DETECTED
[2020-05-13 17:45] LABS: HSV Source BAL RML
[2020-05-13 17:53] LABS: HSV Source BAL
[2020-05-13] MEDS: Nicotine 21 MG PATCH.TD24 TD SCH (20:58)
[2020-05-14] MEDS: *HR* FentaNYL (PF) 100 MCG/2 ML VIAL IVP PRN ×3 (00:19→06:49)
[2020-05-14] MEDS: MethylPREDNISolone 40 MG/ML VIAL IVP SCH (05:06)
[2020-05-14] MEDS ORDERED: *HR* FentaNYL (PF) 100 MCG/2 ML VIAL IVP PRN (08:18)
[2020-05-14] MEDS ORDERED: *HR* LORazepam 2 MG/ML VIAL IVP PRN (08:19)
[2020-05-14] MEDS ORDERED: Scopolamine Patch 1.5 MG PATCH.TD72 TD SCH (10:30)
[2020-05-14] MEDS: *HR* LORazepam Oral Conc 2 MG/ML SL SCH ×2 (13:38→19:29)
[2020-05-14] MEDS: Atropine Sulfate 1% 40 DROP/2 ML BOTTLE SL PRN (22:12)
[2020-05-15] MEDS: *HR* LORazepam Oral Conc 2 MG/ML SL SCH ×5 (00:39→23:47)
[2020-05-15] MEDS: Nicotine 21 MG PATCH.TD24 TD SCH ×2 (08:09→20:47)
[2020-05-15 18:57] VITALS: BP 119/71
[2020-05-16] MEDS: *HR* LORazepam Oral Conc 2 MG/ML SL SCH (05:39)
== END 2020-05-16 06:35 | disposition expired | DRG 896 ==
LOC: 2NNU → SUATTDRO 18:36 → 2ANU 05-02 17:13 → ICNU 05-07 16:50 → 2NNU 05-11 19:16 → 2ANU 05-12 15:01
PROVIDERS: ADMIT Internal Medicine; ATTEND Internal Medicine